=== PATIENT | male | born 1975 | race Caucasian/White ===

== ENCOUNTER 2017-02-22 15:28 | Emergency (ER) | payer BC ==
[~2017-02-22 15:28] MED LIST: ABILIFY5 MG PO; ANTIDEPRESSANT; ASPIR 8181 MG; CAMPRAL333 MG; CREATINE; DEPAKOTE500 MG; DEVILS CLAW; DSF FORMULA; EFFEXOR75 MG; FISH OIL SOFTGE1 CAP; IBUPROFEN800 MG; LAMICTAL150 MG; MELATONIN3 MG; MUSCLE RELAXANT; NEURONTIN300 MG; NORCO 10/325 TA1 TAB PO; NORCO 7.5/325 T1 TAB PO; PERCOCET 5/3251 TAB PO; SYMBYAX 6-251 UDCAP; TRAZODONE50 MG PO; VALIUM10 MG; [UNRECOGNIZED DRUG - OTHER]; [UNRECOGNIZED DRUG - OTHER]; [UNRECOGNIZED DRUG - OTHER]; [UNRECOGNIZED DRUG - OTHER]
[2017-02-22] MEDS ORDERED: TIZANIDINE HCL4 M2 PO (15:37)
[2017-02-22] MEDS ORDERED: CYCLOBENZAPRINE10 M1 PO (15:37)
[2017-02-22] MEDS ORDERED: NEURONTIN300 M1 PO (15:37)
[2017-02-22 16:40] LABS: URINE APPEARANCE CLEAR; URINE BILIRUBIN NEGATIVE (NEG); URINE BLOOD NEGATIVE (NEG); URINE COLOR YELLOW; URINE GLUCOSE (UA) NEGATIVE (NEG); URINE KETONE NEGATIVE (NEG); URINE LEUKOCYTE ESTERASE NEGATIVE (NEG); URINE NITRITE NEGATIVE (NEG); URINE PH 6.5 (5.0-8.0); URINE PROTEIN NEGATIVE (NEG)
[2017-02-22 16:43] LABS: ANION GAP 11 mmol/L (0-20); BLOOD UREA NITROGEN 11 mg/dl (6-24); CALCIUM 8.7 mg/dl (8.5-10.5); CARBON DIOXIDE-VENOUS 27 mmol/L (22-32); CHLORIDE 104 mmol/l (96-110); CREATINE PHOSPHOKINASE (CPK) 184 U/L (35-232); CREATININE 0.96 mg/dl (0.60-1.30); GLUCOSE 91 mg/dL (70-110); SODIUM 138 mmol/L (135-145); eGFR VALUE FOR BLACK >90 mL/Min
== END 2017-02-22 18:00 ==
LOC: EDMED 15:28
PROVIDERS: Emergency Medicine
DX: B34.9 Viral infection, unspecified (principal); Z98.890 Other specified postprocedural states
CPT/HCPCS: J7030